=== PATIENT | female | born 1955 | race Caucasian/White ===

== ENCOUNTER 2019-08-17 14:49 | Inpatient (IN) | payer MEDICARE, MEDICAID ==
[~2019-08-17] VITALS: Ht 165.1 cm; Wt 78.5 kg
[2019-08-17] VITALS (7 sets, daily range): BP systolic 135–159; BP diastolic 74–108
--- NOTE | 2019-08-17 15:00 | NUR ---
patient came in to the er c/o chest pain and sob since last night. On rooma ir, breathing evenly and unlabored. connected tot he monitro and pulse ox. kept comfortable, will continue to monitor accordingly.
[2019-08-17] MEDS ORDERED: ASPIRIN 325 MG TABLET ONE (15:14)
[2019-08-17] MEDS ORDERED: NITROGLYCERIN PACKET 1 GM PACKET ONE (15:14)
[2019-08-17 15:18] LABS: BASOPHILS # (AUTO) 0.3 /CMM (0.0-0.2); BASOPHILS % (AUTO) 3.7 % (0.0-2.0); EOSINOPHILS % (AUTO) 1.4 % (0.0-6.0); HEMATOCRIT 43 % (33-45); HEMOGLOBIN 14.4 g/dL (11.5-14.8); LYMPHOCYTES # (AUTO) 2.6 /CMM (0.8-4.8); LYMPHOCYTES % (AUTO) 32.6 % (20.0-44.0); MEAN CORPUSCULAR HGB CONC 34 g/dl (31.0-36.0); MEAN CORPUSCULAR VOLUME 98 fL (82-100); MONOCYTES # (AUTO) 0.4 /CMM (0.1-1.30); MONOCYTES % (AUTO) 4.5 % (2.0-12.0); NEUTROPHILS # (AUTO) 4.5 /CMM (1.8-8.9); NEUTROPHILS % (AUTO) 57.8 % (43.0-81.0); PLATELET COUNT (AUTO) 214 /CMM (150-450); RED BLOOD CELL COUNT(AUTO) 4.38 MIL/uL (4.0-5.2); WHITE BLOOD COUNT (AUTO) 7.8 K/uL (4.3-11.0)
--- NOTE | 2019-08-17 15:18 | NUR ---
CALLED NURSING SUP FOR TELE BED.
[2019-08-17] MEDS ORDERED: ASPIRIN 325 MG TABLET PO ONE (15:30)
[2019-08-17] MEDS ORDERED: NITROGLYCERIN PACKET 1 GM PACKET TD ONE (15:30)
[2019-08-17 15:36] LABS: CALCIUM, SERUM 9.4 mg/dL (8.5-10.1); CREATININE 0.8 mg/dL (0.6-1.3); POTASSIUM 3.9 mmol/L (3.5-5.1)
[2019-08-17] MEDS ORDERED: [UNRECOGNIZED DRUG - CODE] PO (15:36)
[2019-08-17] MEDS ORDERED: LOSA25TA27 PO (15:36)
[2019-08-17] MEDS ORDERED: ATOR10TA PO (15:36)
--- NOTE | 2019-08-17 15:47 | NUR ---
CALLED [facility]. SEEING PATIENTS WILL CALL BACK WHEN AVAILABLE.
--- NOTE | 2019-08-17 16:10 | NUR ---
CALLED MEDICAL ACCOUNTING CLERK CARDIOLOGY, DR BUSTAMANTE, FOR CONSULT. STILL SEEING PATIENTS UNABLE TO ANSWER. WILL GIVE INFO TO DR JONES TO CALL BACK.
[2019-08-17] MEDS ORDERED: ENOXAPARIN SODIUM 80 MG/0.8 ML DISP.SYRIN SQ ONE ×2 (16:18→16:30)
--- NOTE | 2019-08-17 16:20 | NUR ---
CALLED [facility] TOM [facility].
--- NOTE | 2019-08-17 16:20 | NUR ---
CALLED NURSING SUP TO UPGRADE TELE BED TO ICU.
--- NOTE | 2019-08-17 16:46 | NUR ---
Dr. Harrison at bedside for eval
[2019-08-17] MEDS ORDERED: IOHEXOL-350 100 ML VIAL IV ONE (17:05)
[2019-08-17] MEDS ORDERED: IV NS 0.9% 250 ML IV ONE (17:06)
[2019-08-17] MEDS ORDERED: CT SWABBABLE VALVE TRANS SET 1 EA INFUS.SET MC ONE (17:06)
--- NOTE | 2019-08-17 17:15 | NUR ---
patient wheeled to ct
[2019-08-17] MEDS ORDERED: METOPROLOL TARTRATE 25 MG TABLET ONE (17:21)
[2019-08-17] MEDS: METOPROLOL TARTRATE 25 MG TABLET PO SCH (17:24)
--- NOTE | 2019-08-17 17:25 | NUR ---
patient caem back from ct
--- NOTE | 2019-08-17 17:31 | NUR ---
NURSING SUP GAVE ICU 253.
--- NOTE | 2019-08-17 17:57 | NUR ---
report given to Betty PORRAS for eliza.
--- NOTE | 2019-08-17 17:58 | NUR ---
REPORT RECEIVED FROM [facility] ED TRANSFERRED VIA ACLS PROTOCOL
--- NOTE | 2019-08-17 18:15 | NUR ---
RECEIVED PT FROM ED VIA GURNEY. ABLE TO AMBULATE TO BED. A/O X4 NO S/S OF RESPIRATORY DISTRESS A/O X4 CURRENT VITAL T 97.9 HR 55 B/P 163/88 RR 16 O2 SAT 97% . IV #18 GAUGE TO RAC LEFT HAND # 20 GAUGE. CODE STATUS ORDERED PT FAMILY AT BEDSIDE ORIENTED TO ROOM AND CALL SYSTEM. BED IN LOW LOCKED POSITION ALL NEEDS MET.
--- NOTE | 2019-08-17 18:18 | NUR ---
wheeled patient via gurney accompanied by EMT and RN in no distress. Betty RN at bedside to assume care.
[2019-08-17] MEDS ORDERED: IV NS 0.9% 1,000 ML IV PRN (18:23)
[2019-08-17] MEDS ORDERED: ONDANSETRON HCL/PF 4 MG/2 ML VIAL IVP PRN (18:30)
[2019-08-17] MEDS ORDERED: ACETAMINOPHEN 325 MG TABLET PO PRN (18:30)
[2019-08-17] MEDS ORDERED: MORPHINE SULFATE INJ 2 MG/ML DISP.SYRIN IV PRN (18:30)
[2019-08-17] MEDS ORDERED: Z GUARD REMEDY 2 OZ OINT TP PRN (18:30)
[2019-08-17] MEDS ORDERED: MAG HYDROX/AL HYDROX/SIMETH 30 ML UDC PO PRN (18:30)
[2019-08-17] MEDS ORDERED: MAGNESIUM HYDROXIDE 30 ML UDC PO PRN (18:30)
--- NOTE | 2019-08-17 19:14 | NUR ---
REPORT ENDORSED TO NOC
--- NOTE | 2019-08-17 19:30 | NUR ---
Received patient awake alert and oriented x 4.Move in bed independently.VSS.SR/SB 50's-60's. SPO2 94% on RA.Dx:NSTEMI.NPO with maintenance IVF infusing.Awaiting for Heart CATH in AM. With mild chest discomfort.Denies nausea or vomiting.Continue monitoring.
[2019-08-17] MEDS: HYDROCODONE/APAP 5/325MG 1 EACH TABLET PO PRN (20:54)
--- NOTE | 2019-08-17 20:55 | NUR ---
Patient complaints of chest pain,left arm pain,headache and neck pain with pain scale 7/10. Offered morphine but refused.Medicated with Alborn as PRN.Encouraged to try to relax. Reposition self to comfort.Continue monitoring.
--- NOTE | 2019-08-17 22:15 | NUR ---
Patient resting verbalized pain subsiding.Troponin 3.233 called to no orders received. made aware patient for Heart cath in AM .
[2019-08-18] VITALS (27 sets, daily range): BP systolic 104–166; BP diastolic 52–91
[2019-08-18] MEDS: HYDROCODONE/APAP 5/325MG 1 EACH TABLET PO PRN (04:27)
[2019-08-18 04:46] LABS: BASOPHILS % (AUTO) 0.4 % (0.0-2.0); EOSINOPHILS % (AUTO) 1.5 % (0.0-6.0); HEMATOCRIT 40 % (33-45); HEMOGLOBIN 13.3 g/dL (11.5-14.8); LYMPHOCYTES # (AUTO) 3.3 /CMM (0.8-4.8); LYMPHOCYTES % (AUTO) 43.6 % (20.0-44.0); MEAN CORPUSCULAR HGB CONC 33 g/dl (31.0-36.0); MEAN CORPUSCULAR VOLUME 98 fL (82-100); MONOCYTES # (AUTO) 0.6 /CMM (0.1-1.30); MONOCYTES % (AUTO) 7.8 % (2.0-12.0); NEUTROPHILS # (AUTO) 3.5 /CMM (1.8-8.9); NEUTROPHILS % (AUTO) 46.7 % (43.0-81.0); PLATELET COUNT (AUTO) 188 /CMM (150-450); RED BLOOD CELL COUNT(AUTO) 4.06 MIL/uL (4.0-5.2); WHITE BLOOD COUNT (AUTO) 7.5 K/uL (4.3-11.0)
[2019-08-18 04:52] LABS: CALCIUM, SERUM 8.8 mg/dL (8.5-10.1); CREATININE 0.8 mg/dL (0.6-1.3); MAGNESIUM 1.9 mg/dL (1.8-2.4); PHOSPHORUS 3.6 mg/dL (2.5-4.9); POTASSIUM 3.5 mmol/L (3.5-5.1)
[2019-08-18 05:41] LABS: THYROID STIMULATING HORMONE 2.059 uIU/mL (0.358-3.74)
--- NOTE | 2019-08-18 06:00 | NUR ---
AM care done.VS remains stable. here notified of elevated troponin 4.888. No orders received.Patient denies pain or sob.
[2019-08-18] MEDS ORDERED: LIDOCAINE HCL/PF 1% 30 ML SDV ONE (06:13)
[2019-08-18] MEDS ORDERED: IODIXANOL 150 ML IV ONE (06:14)
[2019-08-18] MEDS ORDERED: VERAPAMIL HCL IV 5 MG/2 ML VIAL ONE (06:15)
[2019-08-18] MEDS ORDERED: HEPARIN SODIUM, PORCINE 1,000 UNIT/ML VIAL ONE (06:15)
[2019-08-18] MEDS ORDERED: NITROGLYCERIN ICAR 1,000 MCG/10 ML VIAL ICAR ONE (06:15)
[2019-08-18] MEDS ORDERED: IV NS 0.9% 1,000 ML ONE (06:53)
--- NOTE | 2019-08-18 07:02 | NUR ---
Patient A/OX4.VSS.SR/SB. Denies pain or sob.Pre-op check list initiated. Consent for Heart Cath obtained by Nick from labels molder.Patient left via bed to offset label rewinder in stable condition.Report given to [facility] shift RN.
[2019-08-18] MEDS ORDERED: MIDAZOLAM HCL 2 MG/2ML VIAL ONE (07:09)
[2019-08-18] MEDS ORDERED: FENTANYL PF 100MCG/2ML AMPUL ONE (07:09)
[2019-08-18] MEDS ORDERED: ASPIRIN 325 MG TABLET ONE (07:57)
[2019-08-18] MEDS ORDERED: TICAGRELOR 90 MG TABLET PO ONE (07:57)
[2019-08-18] MEDS ORDERED: IODIXANOL 320MG/ML 100 ML IV ONE (07:58)
[2019-08-18] MEDS ORDERED: IV SET PRIMARY PUMP SET 1 EA INFUS.SET MC ONE (07:59)
[2019-08-18] MEDS ORDERED: LOSARTAN POTASSIUM 25 MG TABLET PO SCH (09:00)
[2019-08-18] MEDS: METOPROLOL TARTRATE 25 MG TABLET PO SCH ×2 (09:00→16:09)
[2019-08-18] MEDS: ASPIRIN 81 MG TAB.CHEW PO SCH (09:00)
[2019-08-18] MEDS ORDERED: ATORVASTATIN 10 MG TABLET PO SCH (09:00)
[2019-08-18] MEDS: LOSARTAN POTASSIUM 25 MG TABLET PO SCH (09:22)
[2019-08-18] MEDS: ATORVASTATIN 40 MG TABLET PO SCH (09:23)
[2019-08-18] MEDS ORDERED: IV NS 0.9% 500 ML IV ONE (09:30)
--- NOTE | 2019-08-18 10:36 | NUR ---
RN NOTE 0910: Patient back from Cardiac cath(SP PCI of subtotal OM2). A/Ox4. With 2PIVs, right TR band with 8mL air. 94% on room air. SB 54, held Metoprolol. Held ASA 81 for endorsed 325 given in cardiac cath. No c/o chest pain at this time. 0930: Daughter in law at bedside, S/E by Dr. Garcia, discussed re: the POC. DC plan tomorrow with Robina. 1000: Back to Cardiac diet, tolerated well. 1030: Removed 4mL air on TR band, no bleeding. Will continue to monitor.
--- NOTE | 2019-08-18 17:14 | NUR ---
Patient is alert ans pleasant, lives locally alone. She is ambulatory and independent with adl's. Has good family support. Pcp is Dr. Vinita Adams . Current dc plan is to return home, family will provide ride. Addendum: 08/18/19 at 1715 by BENNY LÓPEZ RN Amended: Links added.
--- NOTE | 2019-08-18 20:00 | NUR ---
Received patient AOX4.S/P Heart Cath with PCI of OM2.Right wrist with occlusive dressing C/D/I.Pulses palpable.SB 50's per monitor.Respiration even and unlabored. Denies chest pain or sob.Will administer Brilinta po as ordered.Continue monitoring.
[2019-08-18] MEDS: TICAGRELOR 90 MG TABLET PO SCH (21:01)
[2019-08-19] VITALS (13 sets, daily range): BP systolic 105–133; BP diastolic 57–77
--- NOTE | 2019-08-19 06:55 | NUR ---
Patient resting remains asymptomatic.VSS.SR/SB 50's.Needs attended.Awaiting for DC home today.
[2019-08-19] MEDS: LOSARTAN POTASSIUM 25 MG TABLET PO SCH (08:34)
[2019-08-19] MEDS: ATORVASTATIN 40 MG TABLET PO SCH (08:35)
[2019-08-19] MEDS: ASPIRIN 81 MG TAB.CHEW PO SCH (08:35)
[2019-08-19] MEDS: TICAGRELOR 90 MG TABLET PO SCH (08:35)
[2019-08-19] MEDS: METOPROLOL TARTRATE 25 MG TABLET PO SCH (08:35)
--- NOTE | 2019-08-19 09:24 | NUR ---
RN NOTE 0715: Received patient awake, A/Ox4. Room air. No c/o any discomfort, no CP. PIVs intact. VSS. 0830: Held Metoprolol for 59 HR. 0910: S/E by Dr. Garcia [facility] order of labs to day and cleared to be DC home. Awaiting DC orders from primary. Daughter in law at bedside. Dr. Garcia discussed the POC. To have F/U with him post DC, patient and dtr in law verbalized understandings.
[2019-08-19 09:56] LABS: CALCIUM, SERUM 9.1 mg/dL (8.5-10.1); CREATININE 0.9 mg/dL (0.6-1.3); POTASSIUM 3.7 mmol/L (3.5-5.1)
[2019-08-19 10:27] LABS: BASOPHILS % (AUTO) 0.3 % (0.0-2.0); EOSINOPHILS % (AUTO) 1.3 % (0.0-6.0); HEMATOCRIT 40 % (33-45); HEMOGLOBIN 13.3 g/dL (11.5-14.8); LYMPHOCYTES # (AUTO) 1.7 /CMM (0.8-4.8); LYMPHOCYTES % (AUTO) 26.4 % (20.0-44.0); MEAN CORPUSCULAR HGB CONC 33 g/dl (31.0-36.0); MEAN CORPUSCULAR VOLUME 98 fL (82-100); MONOCYTES # (AUTO) 0.4 /CMM (0.1-1.30); MONOCYTES % (AUTO) 6.5 % (2.0-12.0); NEUTROPHILS # (AUTO) 4.2 /CMM (1.8-8.9); NEUTROPHILS % (AUTO) 65.5 % (43.0-81.0); PLATELET COUNT (AUTO) 174 /CMM (150-450); RED BLOOD CELL COUNT(AUTO) 4.12 MIL/uL (4.0-5.2); WHITE BLOOD COUNT (AUTO) 6.5 K/uL (4.3-11.0)
[2019-08-19] MEDS ORDERED: ATOR40TA PO (10:27)
[2019-08-19] MEDS ORDERED: ASPI-1169 PO (10:27)
[2019-08-19] MEDS ORDERED: METO25TA20 PO (10:27)
[2019-08-19] MEDS ORDERED: TICA90TA PO (10:27)
--- NOTE | 2019-08-19 11:23 | NUR ---
RN NOTE Discharged patient in good condition. PIVs removed, intact, no bleeding, applied pressure and dry dressing. No CP. VSS. Accompanied by MANAGEMENT RETAIL INTERN to lobby via WC. Picked up by Qi Brown in law. Discussed meds and F/U appt with Dr. Garcia. Given Prescriptions to patient.
--- NOTE | 2019-08-19 11:29 | NUR ---
RN NOTE Offered Flu and PNA vac, patient refused even after informing the risks and benefits.
== END 2019-08-19 11:24 | disposition home or self-care (01) | DRG 246 ==
LOC: ER 14:51 → ICU 17:45
PROVIDERS: ADMIT Nurse Practitioner Acute Care; ATTEND Internal Medicine
PROC: 4A023N7 Measurement of Cardiac Sampling and Pressure, Left Heart, Percutaneous Approach (ICD-10-PCS; principal; 2019-08-18)
PROC: 027034Z Dilation of Coronary Artery, One Artery with Drug-eluting Intraluminal Device, Percutaneous Approach (ICD-10-PCS; 2019-08-18)
PROC: B211YZZ Fluoroscopy of Multiple Coronary Arteries using Other Contrast (ICD-10-PCS; 2019-08-18)
PROC: B215YZZ Fluoroscopy of Left Heart using Other Contrast (ICD-10-PCS; 2019-08-18)
DX: I21.4 Non-ST elevation (NSTEMI) myocardial infarction (principal); I50.33 Acute on chronic diastolic (congestive) heart failure; I25.10 Atherosclerotic heart disease of native coronary artery without angina pectoris; E78.5 Hyperlipidemia, unspecified; F17.210 Nicotine dependence, cigarettes, uncomplicated; I25.2 Old myocardial infarction; Z95.5 Presence of coronary angioplasty implant and graft; I11.0 Hypertensive heart disease with heart failure
CPT/HCPCS: 36415; 71045-TC; 80048-TC; 80061-TC; 83735-TC; 84100-TC; 84443-TC; 84484-TC; 85025-TC; 85730-TC; 87081-TC; 92980; 93307-TC; 93452; C1725; C1887; G0378; J1644; J1650; J2250; J3010; J3490; J7030; J7040; J7050; Q9967